=== PATIENT | female | born 1980 | race Caucasian/White ===

== ENCOUNTER 2023-02-07 10:27 | Outpatient (CLI) | payer BC, OTHER | END 2023-02-07 10:28 | disposition home or self-care (01) | LOC: CSHMAMMO 10:27 | PROVIDERS: ATTEND Nurse Practitioner Family | DX: Z12.31 Encounter for screening mammogram for malignant neoplasm of breast (principal); N63.10 Unspecified lump in the right breast, unspecified quadrant | CPT/HCPCS: 77063; 77067 ==

== ENCOUNTER 2023-02-11 08:31 | Outpatient (CLI) | payer BC | END 2023-02-11 08:32 | disposition home or self-care (01) | LOC: CSHMAMMO 08:31 | PROVIDERS: ATTEND Nurse Practitioner Family | DX: N60.11 Diffuse cystic mastopathy of right breast (principal); N64.89 Other specified disorders of breast | CPT/HCPCS: G0279 ==

== ENCOUNTER 2023-09-23 14:11 | Outpatient (CLI) | payer BC | END 2023-09-23 14:12 | disposition home or self-care (01) | LOC: CSHMAMMO 14:11 | PROVIDERS: ATTEND Specialist | DX: N63.10 Unspecified lump in the right breast, unspecified quadrant (principal); N64.89 Other specified disorders of breast; N60.01 Solitary cyst of right breast | CPT/HCPCS: G0279 ==